=== PATIENT | female | born 1965 | race Caucasian/White ===

== ENCOUNTER 2017-08-10 12:20 | Emergency (ER) | payer BC ==
--- NOTE | 2017-08-10 13:22 | ERPHSYRPT ---
- History of Present Illness Time Seen by Provider: 08/10/17 13:02 Historian: patient Exam Limitations: no limitations Patient Subjective Stated Complaint: Abdominal Pain and Flank Pain x2 weeks Triage Nursing Assessment: Pt presents to the ED with complaints of LUQ abdominal pain x2 weeks, worsening x3 days. Pt states burning sensation. Pt states intermittent diarrhea with constipation, denies BM x3 days. No distress noted, skin PWD, Pt A&O x4. Physician History: The patient is a 51-year-old female complaining of worsening abdominal pain for the last 2 weeks. The pain is on the left side. She has not had a bowel movement in the last 3 days. Since the pain began, she's had intermittent watery diarrhea with days of constipation. She has had no normal bowel movement for 2 weeks. At times she will vomit after eating. Her normal bowel habit is to have 1 or 2 bowel movements per week. She states she feels bloated as well. She says for the last day she has not passed any gas or had any bowel movement. She has not vomited for the last 2 days. She saw her primary medical doctor on Tuesday and was given ciprofloxacin without any relief. Her past medical history is significant for right oophorectomy, hysterectomy, cholecystectomy, and she thinks possibly an appendectomy when she had her ovary removed. Timing/Duration: week(s) (2), gradual onset, worse Activities at Onset: none Quality: aching, fullness Abdominal Pain Onset Location: LUQ, LLQ Pain Radiation: no radiation Severity of Pain-Max: moderate Severity of Pain-Current: moderate Modifying Factors: Improves With: nothing Associated Symptoms: diarrhea, nausea, vomiting Previous symptoms: no prior history Allergies/Adverse Reactions: latex Allergy (Mild, Verified 08/10/17 12:38) Rash Home Medications: Ciprofloxacin [Cipro 500 MG] 500 mg PO BID 08/10/17 [History] Hx Tetanus, Diphtheria Vaccination/Date Given: No Hx Influenza Vaccination/Date Given: No Hx Pneumococcal Vaccination/Date Given: No Immunizations Up to Date: No - Review of Systems Constitutional: No Fever, No Chills Eyes: No Symptoms Ears, Nose, & Throat: No Symptoms Respiratory: No Cough, No Dyspnea Cardiac: No Chest Pain, No Edema, No Syncope Abdominal/Gastrointestinal: Nausea, Vomiting, Diarrhea, Constipation Genitourinary Symptoms: No Dysuria Musculoskeletal: No Back Pain, No Neck Pain Skin: No Rash Neurological: No Dizziness, No Focal Weakness, No Sensory Changes Psychological: No Symptoms Endocrine: No Symptoms Hematologic/Lymphatic: No Symptoms Immunological/Allergic: No Symptoms All Other Systems: Reviewed and Negative - Past Medical History Pertinent Past Medical History: Yes Neurological History: No Pertinent History ENT History: No Pertinent History Cardiac History: No Pertinent History Respiratory History: No Pertinent History Endocrine Medical History: No Pertinent History Musculoskeletal History: No Pertinent History GI Medical History: No Pertinent History History: No Pertinent History Psycho-Social History: No Pertinent History Female Reproductive Disorders: Uterine Cancer - Past Surgical History Past Surgical History: Yes Neuro Surgical History: No Pertinent History Cardiac: No Pertinent History Respiratory: No Pertinent History Gastrointestinal: Cholecystectomy Genitourinary: No Pertinent History Female Surgical History: Hysterectomy, Section - Social History Smoking Status: Current every day smoker How long have you smoked: 15 years Exposure to second hand smoke: Yes Drug Use: none Patient Lives Alone: Yes - Female History Hx Now: No - Nursing Vital Signs Nursing Vital Signs: Initial Vital Signs Temperature 98.5 F 08/10/17 12:24 Pulse Rate 72 08/10/17 12:24 Respiratory Rate 16 08/10/17 12:24 Blood Pressure 147/93 08/10/17 12:24 O2 Sat by Pulse Oximetry 98 08/10/17 12:24 Pain Scale Pain Intensity 2 - Physical Exam General Appearance: no apparent distress, alert Eye Exam: PERRL/EOMI, eyes nml inspection Ears, Nose, Throat Exam: normal ENT inspection, pharynx normal, moist mucous membranes Neck Exam: normal inspection, non-tender, supple, full range of motion Respiratory Exam: normal breath sounds, lungs clear, No respiratory distress Cardiovascular Exam: regular rate/rhythm, normal heart sounds Gastrointestinal/Abdomen Exam: soft, tenderness (left abdomen), other ( hyperactive BS), No mass, No guarding Pelvic Exam: not done Rectal Exam: not done Back Exam: normal inspection, normal range of motion, No CVA tenderness, No vertebral tenderness Extremity Exam: normal inspection, normal range of motion, pelvis stable Neurologic Exam: alert, oriented x 3, cooperative, normal mood/affect, nml cerebellar function, sensation nml, No motor deficits Skin Exam: normal color, warm, dry SpO2 Interpretation: normal SpO2: 100 Oxygen Delivery: Room Air - CT Exams Abdomen/Pelvis CT Interpretation: Tele-radiologist Report, Normal Appendix, No appendicitis, Other (no ureteral stones; nomal appendix; nonspecific prominence of 3 small bowel loops/possible enteritis; no diverticular disesase Per Dr Lopez.) Ordered Tests: Active Orders 24 hr Category Date Time Status Clean Catch Urine Specimen STAT Care 08/10/17 13:29 Active IV Insertion STAT Care 08/10/17 13:29 Active ABDOMEN AND PELVIS W/0 CONTRAS [CT] Stat Exams 08/10/17 13:30 Completed AMYLASE Stat Lab 08/10/17 14:08 Completed CBC W DIFF Stat Lab 08/10/17 14:08 Completed CMP Stat Lab 08/10/17 14:08 Completed LIPASE Stat Lab 08/10/17 14:08 Completed Lactic Acid Stat Lab 08/10/17 13:55 Completed UA W/RFX UR CULTURE Stat Lab 08/10/17 13:39 Completed Medication Summary Discontinued Medications Generic Name Dose Route Start Last Admin Trade Name Freq PRN Reason Stop Dose Admin Sodium Chloride 1,000 mls @ 999 mls/hr 08/10/17 13:29 08/10/17 13:52 Sodium Chloride 0.9% 1000 Ml IV 08/10/17 14:29 999 mls/hr .Q1H1M STA Administration Sodium Chloride Confirm 08/10/17 13:50 Sodium Chloride 0.9% 1000 Ml Administered 08/10/17 13:51 Dose 1,000 mls @ ud .ROUTE .STK-MED ONE Ketorolac Tromethamine 30 mg 08/10/17 13:29 08/10/17 13:53 Toradol 30 Mg Injection IV 08/10/17 13:30 30 mg STAT ONE Administration Ketorolac Tromethamine Confirm 08/10/17 13:50 Toradol 30 Mg Injection Administered 08/10/17 13:51 Dose 30 mg .ROUTE .STK-MED ONE Ondansetron HCl 4 mg 08/10/17 13:29 08/10/17 13:53 Zofran 4 Mg/2 Ml Vial IV 08/10/17 13:30 4 mg STAT ONE Administration Ondansetron HCl Confirm 08/10/17 13:50 Zofran 4 Mg/2 Ml Vial Administered 08/10/17 13:51 Dose 4 mg .ROUTE .STK-MED ONE Lab/Rad Data: Laboratory Result Diagrams 08/10/17 14:08 08/10/17 14:08 Laboratory Results 08/10/17 08/10/17 08/10/17 Range/Units 14:08 14:08 13:55 WBC 7.8 (4.0-10.5) K/mm3 RBC 4.82 (4.1-5.4) M/mm3 Hgb 14.4 (12.0-16.0) gm/dl Hct 43.2 (35-47) % MCV 89.6 (78-100) fl MCH 29.9 (26-32) pg MCHC 33.3 (32-36) g/dl RDW 14.0 (11.5-14.0) % Plt Count 326 (150-450) K/mm3 MPV 10.3 H (6-9.5) fl Gran % 53.4 (36.0-66.0) % Eos # (Auto) 1.20 H (0-0.5) Absolute Lymphs (auto) 1.92 (1.0-4.6) Absolute Monos (auto) 0.48 (0.0-1.3) Lymphocytes % 24.7 (24.0-44.0) % Monocytes % 6.2 (0.0-12.0) % Eosinophils % 15.4 H (0.00-5.0) % Basophils % 0.3 (0.0-0.4) % Absolute Granulocytes 4.15 (1.4-6.9) Basophils # 0.02 (0-0.4) Sodium 142 (137-145) mmol/L Potassium 3.6 (3.5-5.1) mmol/L Chloride 107 (98-107) mmol/L Carbon Dioxide 26 (22-30) mmol/L Anion Gap 13.3 (5-15) MEQ/L BUN 8 (7-17) mg/dL Creatinine 0.91 (0.52-1.04) mg/dL Estimated GFR > 60.0 ML/MIN Glucose 98 (74-106) mg/dL Lactic Acid 1.0 (0.4-2.0) Calcium 10.1 (8.4-10.2) mg/dL Total Bilirubin 0.30 (0.2-1.3) mg/dL AST 23 (14-36) U/L ALT 18 (0-35) U/L Alkaline Phosphatase 114 (38-126) U/L Serum Total Protein 8.3 H (6.3-8.2) g/dL Albumin 4.7 (3.5-5.0) g/dL Amylase 37 (30-110) U/L Lipase 49 (23-300) U/L Ur Collection Type Urine Color (YELLOW) Urine Appearance (CLEAR) Urine pH (5-6) Ur Specific [place] (1.005-1.025) Urine Protein (Negative) Urine Ketones (NEGATIVE) Urine Blood (0-5) [place]/ul Urine Nitrite (NEGATIVE) Urine Bilirubin (NEGATIVE) Urine Urobilinogen (0-1) mg/dL Ur Leukocyte Esterase (NEGATIVE) Urine Culture Reflexed (NO) Urine Glucose (NEGATIVE) mg/dL Specimen Received 08/10/17 Range/Units 13:39 WBC (4.0-10.5) K/mm3 RBC (4.1-5.4) M/mm3 Hgb (12.0-16.0) gm/dl Hct (35-47) % MCV (78-100) fl MCH (26-32) pg MCHC (32-36) g/dl RDW (11.5-14.0) % Plt Count (150-450) K/mm3 MPV (6-9.5) fl Gran % (36.0-66.0) % Eos # (Auto) (0-0.5) Absolute Lymphs (auto) (1.0-4.6) Absolute Monos (auto) (0.0-1.3) Lymphocytes % (24.0-44.0) % Monocytes % (0.0-12.0) % Eosinophils % (0.00-5.0) % Basophils % (0.0-0.4) % Absolute Granulocytes (1.4-6.9) Basophils # (0-0.4) Sodium (137-145) mmol/L Potassium (3.5-5.1) mmol/L Chloride (98-107) mmol/L Carbon Dioxide (22-30) mmol/L Anion Gap (5-15) MEQ/L BUN (7-17) mg/dL Creatinine (0.52-1.04) mg/dL Estimated GFR ML/MIN Glucose (74-106) mg/dL Lactic Acid (0.4-2.0) Calcium (8.4-10.2) mg/dL Total Bilirubin (0.2-1.3) mg/dL AST (14-36) U/L ALT (0-35) U/L Alkaline Phosphatase (38-126) U/L Serum Total Protein (6.3-8.2) g/dL Albumin (3.5-5.0) g/dL Amylase (30-110) U/L Lipase (23-300) U/L Ur Collection Type CLEAN CATCH Urine Color YELLOW (YELLOW) Urine Appearance CLEAR (CLEAR) Urine pH 5.0 (5-6) Ur Specific [place] 1.010 (1.005-1.025) Urine Protein NEGATIVE (Negative) Urine Ketones NEGATIVE (NEGATIVE) Urine Blood NEGATIVE (0-5) [place]/ul Urine Nitrite NEGATIVE (NEGATIVE) Urine Bilirubin NEGATIVE (NEGATIVE) Urine Urobilinogen NORMAL (0-1) mg/dL Ur Leukocyte Esterase NEGATIVE (NEGATIVE) Urine Culture Reflexed NO (NO) Urine Glucose NEGATIVE (NEGATIVE) mg/dL Specimen Received 08/10/17 1340 - Progress Progress: improved Progress Note: 08/10/17 15:20 After toradol 30 mg and zofran 4 mg IV, pt is pain-free. Counseled pt/family regarding: lab results, diagnosis, need for follow-up, rad results - Departure Time of Disposition: 15:20 Departure Disposition: Home Clinical Impression: Enteritis Condition: Stable Critical Care Time: No Referrals: CHATA TORRES MD [Primary Care Provider] - Additional Instructions: You have a minor infection in your small intestine. This is called enteritis. Continue taking the ciprofloxacin as was previously prescribed. You were given Toradol 30 mg and Zofran 4 mg by IV in the ER. You may continue to take Tylenol 1000 mg every 6-8 hours as needed. Follow-up with Dr. Torres on Tuesday as previously scheduled.
[2017-08-10] MEDS ORDERED: Sodium Chloride 0.9% 1000 ML 1,000 ML IV STA (13:29)
[2017-08-10] MEDS ORDERED: Zofran 4 MG/2 ML VIAL IV ONE (13:29)
[2017-08-10] MEDS ORDERED: TORAdol 30 mg Injection IV ONE (13:29)
[2017-08-10 13:50] LABS: Appearance CLEAR (CLEAR); Bilirubin NEGATIVE (NEGATIVE); Blood NEGATIVE Ery/ul (0-5); Glucose NEGATIVE (NEGATIVE); Ketones NEGATIVE (NEGATIVE); Leukocyte Esterase NEGATIVE (NEGATIVE); Nitrite NEGATIVE (NEGATIVE); Protein,Urine Dip NEGATIVE (Negative); Urobilinogen NORMAL mg/dL (0-1)
[2017-08-10] MEDS ORDERED: TORAdol 30 mg Injection ONE (13:50)
[2017-08-10] MEDS ORDERED: Sodium Chloride 0.9% 1000 ML 1,000 ML ONE (13:50)
[2017-08-10] MEDS ORDERED: Zofran 4 MG/2 ML VIAL ONE (13:50)
[2017-08-10 14:10] LABS: BASOPHIL % 0.3 % (0.0-0.4); Basophil (Absolute #) 0.02 (0-0.4); Eosinophil % 15.4 % (0.00-5.0); Granulocyte Absolute (ANC) 4.15 (1.4-6.9); Granulocytes % 53.4 % (36.0-66.0); Hematocrit 43.2 % (35-47); Hemoglobin 14.4 gm/dl (12.0-16.0); Lymphocyte (Absolute #) 1.92 (1.0-4.6); Lymphocytes % 24.7 % (24.0-44.0); Mean Cell Volume 89.6 fl (78-100); Mean Corpuscular Hemoglobin 29.9 pg (26-32); Mean Corpuscular Hgb Concent. 33.3 g/dl (32-36); Mean Platelet Volume 10.3 fl (6-9.5); Monocyte (Absolute #) 0.48 (0.0-1.3); Monocytes % 6.2 % (0.0-12.0); Platelet Count 326 K/mm3 (150-450); Red Blood Count 4.82 M/mm3 (4.1-5.4); White Blood Count 7.8 K/mm3 (4.0-10.5)
[2017-08-10 14:40] LABS: ALBUMIN 4.7 g/dL (3.5-5.0); ALKALINE PHOSPHATASE 114 U/L (38-126); AMYLASE 37 U/L (30-110); ANION GAP 13.3 MEQ/L (5-15); BLOOD UREA NITROGEN 8 mg/dL (7-17); CHLORIDE 107 mmol/L (98-107); Calcium 10.1 mg/dL (8.4-10.2); Carbon Dioxide 26 mmol/L (22-30); Creatinine 1 0.91 mg/dL (0.52-1.04); Glucose 98 mg/dL (74-106); LIPASE 49 U/L (23-300); Potassium 3.6 mmol/L (3.5-5.1); SGOT/AST 23 U/L (14-36); SGPT/ALT 18 U/L (0-35); SODIUM 142 mmol/L (137-145); Total Protein 8.3 g/dL (6.3-8.2)
--- NOTE | 2017-08-10 14:47 | XRAY ---
Exam: CT of the abdomen and pelvis without IV contrast from 08/10/2017. CTDI: 20.80 Comparison: None. Indication: 51-year-old female with left-sided abdominal pain for 2 weeks, particularly within the left upper quadrant. History: The patient gives a history of prior cholecystectomy and hysterectomy and prior right oophorectomy. She believes that she still has her left ovary. She is unsure whether her appendix has been removed in the past. Technique: Non-IV contrast axial images were obtained through the abdomen and pelvis. No oral contrast was given. Reconstructed coronal and sagittal images were created and reviewed. Findings: The lung bases reveals some minimal linear scarring or subsegmental atelectasis at the posterior right lung base. Subtle compression atelectatic changes are seen adjacent to both posterior pleural surfaces. No other abnormality of the lung bases is seen. There is a suggestion of a minimal hiatal hernia on axial image #11. The liver appears normal. Surgical clips consistent with prior cholecystectomy are seen. No intrahepatic biliary duct distention is seen. The spleen is of normal size and reveals a small calcified granuloma. No focal mass is seen. There is a minimal splenule at the anterior lateral margin of the spleen on axial image #19. The pancreas appears unremarkable. There is some prominence of the distal common bile duct adjacent to the posterior lateral margin of the pancreatic head. The common bile duct measures up to 11 mm in diameter. This is probably due to the patient's prior cholecystectomy. Again, no intrahepatic biliary duct distention is seen. The adrenal glands appear unremarkable. The right kidney reveals a couple tiny nonobstructing stones, one within the upper pole and the other within the lower pole. The left kidney reveals 5 or 6 tiny stones which are nonobstructing and probably calyceal in location. I see no evidence of hydronephrosis of either kidney. Both ureters are of normal diameter and reveal no ureterolith. The urinary bladder is distended with urine and reveals no bladder stone or bladder wall thickening. No abdominal aortic aneurysm is seen. Minimal atherosclerotic vascular calcification is seen within the of the upper and distal abdominal aorta. No abnormal retroperitoneal or mesenteric lymphadenopathy is seen. Minimal protrusion of intraperitoneal fat is seen anteriorly on sagittal image #81 at the level of the umbilicus. A bowel containing ventral hernia is not seen. There is no free intraperitoneal air seen. Within the right lower quadrant, the appendix is identified and appears unremarkable. No focal inflammatory changes are seen within the right lower quadrant.. There is mild prominence of some small bowel loops just to the left of midline within the mid abdomen, best seen on the CT sailing instructor image. This is nonspecific and may relate to a mild focal ileus. Consider enteritis. Otherwise, the colon appears of normal diameter and reveals a small amount of scattered stool. No significant diverticula are seen within the colon. The uterus is surgically absent. The right ovary is not seen. The left ovary may be seen on axial images #65 and #66 within the left hemipelvis. The pelvic sidewalls appear unremarkable. No free fluid is seen. Some scattered nonspecific lymph nodes are seen within both inguinal regions. The skeleton reveals no acute fracture or aggressive bone lesion. Some mild vacuum disc phenomena is seen within the L4-L5 and L5-S1 interspace levels suggesting mild degenerative disc disease. Small vertebral endplate spurs are noted within the lower 3 lumbar interspace levels. There is also mild vertebral endplate spurring within the lower thoracic spine. Impression: 1. There are multiple small micro-calculi within the kidneys in a calyceal location, more numerous on the left than right. However, I do not see any evidence of acute obstructive uropathy (i.e. no hydronephrosis or ureteral dilation). Also, no urinary bladder stone is seen. 2. The appendix appears unremarkable. 3. I note mild nonspecific prominence of at least 3 small bowel loops just to the left of midline within the mid abdomen. This is nonspecific and could be due to a focal ileus or enteritis. No convincing findings of bowel obstruction are seen. 4. Status post cholecystectomy, hysterectomy, an apparent right oophorectomy. 5. Minimal hiatal hernia. 6. Mild degenerative disc disease at L4-L5 and L5-S1.
[2017-08-10 15:00] VITALS: BP 140/80; PULSE 88
[2017-08-10 15:20] VITALS: O2SAT 100
== END 2017-08-10 15:28 | disposition home or self-care (01) ==
LOC: ED 12:20
DX: Z72.0 Tobacco use (principal); Z85.42 Personal history of malignant neoplasm of other parts of uterus
CPT/HCPCS: 36000; 36415; 74176; 80053; 81002; 82150; 83605; 83690; 85025; 96374; 96375; 99284; J1885; J2405

== ENCOUNTER 2017-08-26 15:27 | Emergency (ER) | payer BC ==
--- NOTE | 2017-08-26 16:15 | ERPHSYRPT ---
- History of Present Illness Time Seen by Provider: 08/26/17 16:09 Historian: patient Exam Limitations: no limitations Patient Subjective Stated Complaint: pt reports abd pain n/v/d beginning pushpa 1 month ago-states she was treated 3 weeks ago and finished round of cipro on august 17-states n/v/d has not gotten better-states if she eats or drinks anything then she will vomit and have diarrhea-denies donato blood Triage Nursing Assessment: pt pink warm and [id number] soft and nontender to palp-pt ambulatory with no difficulty-resp easy and nonlabored Physician History: He the patient is a 51-year-old female who I saw in this ER on 08/10/17 for essentially the same complaint. On 08/10/17 she had complained of abdominal pain for 2 weeks. The pain was on her left side. She had intermittent pain with intermittent watery diarrhea. Her CT scan of 08/10/17 showed mild enteritis. She had been on ciprofloxacin 500 mg 2 times a day before being seen and continued the ciprofloxacin for another period of time totaling 2 weeks. She has seen her primary care doctor since the last ER visit. She still has intermittent abdominal pain with more pain on the left side. Now in addition to the explosive watery diarrhea she has vomiting. She will eat a little bit and after an hour or so, she will vomit and have diarrhea. She also complains of sweats and chills. She called her primary care doctor and was told to be seen once again in the ER. Her past medical history is significant for a right oophorectomy, hysterectomy, and cholecystectomy. She takes no medicines at this time and is allergic to no medicines. Timing/Duration: week(s) (4), intermittent, gradual onset, worse Activities at Onset: none Quality: aching Abdominal Pain Onset Location: LLQ Pain Radiation: no radiation Severity of Pain-Max: severe Severity of Pain-Current: mild Modifying Factors: Improves With: defecating, eating, vomiting Associated Symptoms: denies symptoms Previous symptoms: same symptoms as today, recently seen, recently treated Allergies/Adverse Reactions: latex Allergy (Mild, Verified 08/26/17 15:46) Rash Hx Tetanus, Diphtheria Vaccination/Date Given: No Hx Influenza Vaccination/Date Given: No Hx Pneumococcal Vaccination/Date Given: No Immunizations Up to Date: Yes - Review of Systems Constitutional: Fever, Chills Eyes: No Symptoms Ears, Nose, & Throat: No Symptoms Respiratory: No Cough, No Dyspnea Cardiac: No Chest Pain, No Edema, No Syncope Abdominal/Gastrointestinal: Abdominal Pain, Nausea, Vomiting, Diarrhea Genitourinary Symptoms: No Dysuria Musculoskeletal: No Back Pain, No Neck Pain Skin: No Rash Neurological: No Dizziness, No Focal Weakness, No Sensory Changes Psychological: No Symptoms Endocrine: No Symptoms Hematologic/Lymphatic: No Symptoms Immunological/Allergic: No Symptoms All Other Systems: Reviewed and Negative - Past Medical History Pertinent Past Medical History: Yes Neurological History: No Pertinent History ENT History: No Pertinent History Cardiac History: No Pertinent History Respiratory History: No Pertinent History Endocrine Medical History: No Pertinent History Musculoskeletal History: No Pertinent History GI Medical History: No Pertinent History History: No Pertinent History Psycho-Social History: No Pertinent History Female Reproductive Disorders: Uterine Cancer - Past Surgical History Past Surgical History: Yes Neuro Surgical History: No Pertinent History Cardiac: No Pertinent History Respiratory: No Pertinent History Gastrointestinal: Cholecystectomy Genitourinary: No Pertinent History Female Surgical History: Hysterectomy, Section - Social History Smoking Status: Current every day smoker How long have you smoked: 15 years Exposure to second hand smoke: Yes Drug Use: none Patient Lives Alone: Yes - Female History Hx Now: No - Nursing Vital Signs Nursing Vital Signs: Initial Vital Signs Temperature 98.5 F 08/26/17 15:42 Pulse Rate 107 H 08/26/17 15:42 Respiratory Rate 18 08/26/17 15:42 Blood Pressure 121/91 08/26/17 15:42 O2 Sat by Pulse Oximetry 97 08/26/17 15:42 Pain Scale Pain Intensity 4 - Physical Exam General Appearance: mild distress Eye Exam: PERRL/EOMI, eyes nml inspection Ears, Nose, Throat Exam: normal ENT inspection, pharynx normal, moist mucous membranes Neck Exam: normal inspection, non-tender, supple, full range of motion Respiratory Exam: normal breath sounds, lungs clear, No respiratory distress Cardiovascular Exam: regular rate/rhythm, normal heart sounds Gastrointestinal/Abdomen Exam: tenderness (LLQ) Pelvic Exam: not done Rectal Exam: not done Back Exam: normal inspection, normal range of motion, No CVA tenderness, No vertebral tenderness Extremity Exam: normal inspection, normal range of motion, pelvis stable Neurologic Exam: alert, oriented x 3, cooperative, normal mood/affect, nml cerebellar function, sensation nml, No motor deficits Skin Exam: normal color, warm, dry SpO2 Interpretation: normal SpO2: 97 Oxygen Delivery: Room Air - CT Exams Abdomen/Pelvis CT Interpretation: Tele-radiologist Report (per Dr Post), Normal Appendix, Other (no new ors acute intsra-abdominal/pelvic abnormalities.) Ordered Tests: Active Orders 24 hr Category Date Time Status IV Insertion STAT Care 08/26/17 16:16 Active ABDOMEN AND PELVIS W/0 CONTRAS [CT] Stat Exams 08/26/17 16:17 Completed BLOOD CULTURE Stat Lab 08/26/17 16:17 Ordered CBC W DIFF Stat Lab 08/26/17 16:16 Completed CMP Stat Lab 08/26/17 16:16 Completed LIPASE Stat Lab 08/26/17 16:16 Completed Lactic Acid Stat Lab 08/26/17 16:33 Completed Occult Blood,Stool Other Stat Lab 08/26/17 16:23 Ordered UA W/RFX UR CULTURE Stat Lab 08/26/17 16:23 Completed Medication Summary Discontinued Medications Generic Name Dose Route Start Last Admin Trade Name Freq PRN Reason Stop Dose Admin Famotidine 20 mg 08/26/17 16:16 08/26/17 16:39 Pepcid 20 Mg Vial IV 08/26/17 16:17 20 mg STAT ONE Administration Famotidine Confirm 08/26/17 16:25 Pepcid 20 Mg Vial Administered 08/26/17 16:26 Dose 20 mg IV .STK-MED ONE Sodium Chloride 1,000 mls @ 999 mls/hr 08/26/17 16:16 08/26/17 16:39 Sodium Chloride 0.9% 1000 Ml IV 08/26/17 17:16 999 mls/hr .Q1H1M STA Administration Sodium Chloride Confirm 08/26/17 16:26 Sodium Chloride 0.9% 1000 Ml Administered 08/26/17 16:27 Dose 1,000 mls @ ud .ROUTE .STK-MED ONE Morphine Sulfate 4 mg 08/26/17 16:16 08/26/17 16:38 Morphine Sulfate 4 Mg Inj IV 08/26/17 16:17 Not Given STAT ONE Morphine Sulfate Confirm 08/26/17 16:26 Morphine Sulfate 4 Mg Inj Administered 08/26/17 16:27 Dose 4 mg .ROUTE .STK-MED ONE Ondansetron HCl 4 mg 08/26/17 16:16 08/26/17 16:39 Zofran 4 Mg/2 Ml Vial IV 08/26/17 16:17 4 mg STAT ONE Administration Ondansetron HCl Confirm 08/26/17 16:25 Zofran 4 Mg/2 Ml Vial Administered 08/26/17 16:26 Dose 4 mg .ROUTE .K-[facility] ONE Lab/Rad Data: Laboratory Result Diagrams 08/26/17 16:16 08/26/17 16:16 Laboratory Results 08/26/17 08/26/17 08/26/17 Range/Units 16:33 16:23 16:16 WBC (4.0-10.5) K/mm3 RBC (4.1-5.4) M/mm3 Hgb (12.0-16.0) gm/dl Hct (35-47) % MCV (78-100) fl MCH (26-32) pg MCHC (32-36) g/dl RDW (11.5-14.0) % Plt Count (150-450) K/mm3 MPV (6-9.5) fl Gran % (36.0-66.0) % Eos # (Auto) (0-0.5) Absolute Lymphs (auto) (1.0-4.6) Absolute Monos (auto) (0.0-1.3) Lymphocytes % (24.0-44.0) % Monocytes % (0.0-12.0) % Eosinophils % (0.00-5.0) % Basophils % (0.0-0.4) % Absolute Granulocytes (1.4-6.9) Basophils # (0-0.4) Sodium 142 (137-145) mmol/L Potassium 3.5 (3.5-5.1) mmol/L Chloride 103 (98-107) mmol/L Carbon Dioxide 27 (22-30) mmol/L Anion Gap 14.1 (5-15) MEQ/L BUN 9 (7-17) mg/dL Creatinine 0.81 (0.52-1.04) mg/dL Estimated GFR > 60.0 ML/MIN Glucose 87 (74-106) mg/dL Lactic Acid 0.8 (0.4-2.0) Calcium 9.8 (8.4-10.2) mg/dL Total Bilirubin 0.50 (0.2-1.3) mg/dL AST 19 (14-36) U/L ALT 15 (0-35) U/L Alkaline Phosphatase 92 (38-126) U/L Serum Total Protein 7.5 (6.3-8.2) g/dL Albumin 4.5 (3.5-5.0) g/dL Lipase 18 L (23-300) U/L Ur Collection Type CLEAN CATCH Urine Color LT.YELLOW (YELLOW) Urine Appearance CLEAR (CLEAR) Urine pH 5.0 (5-6) Ur Specific [place] 1.010 (1.005-1.025) Urine Protein NEGATIVE (Negative) Urine Ketones NEGATIVE (NEGATIVE) Urine Blood NEGATIVE (0-5) [place]/ul Urine Nitrite NEGATIVE (NEGATIVE) Urine Bilirubin NEGATIVE (NEGATIVE) Urine Urobilinogen NORMAL (0-1) mg/dL Ur Leukocyte Esterase NEGATIVE (NEGATIVE) Urine Culture Reflexed NO (NO) Urine Glucose NEGATIVE (NEGATIVE) mg/dL Specimen Received 08/26/17 1700 08/26/17 Range/Units 16:16 WBC 7.5 (4.0-10.5) K/mm3 RBC 4.59 (4.1-5.4) M/mm3 Hgb 13.8 (12.0-16.0) gm/dl Hct 41.4 (35-47) % MCV 90.2 (78-100) fl MCH 30.1 (26-32) pg MCHC 33.3 (32-36) g/dl RDW 14.2 H (11.5-14.0) % Plt Count 331 (150-450) K/mm3 MPV 10.2 H (6-9.5) fl Gran % 51.6 (36.0-66.0) % Eos # (Auto) 1.18 H (0-0.5) Absolute Lymphs (auto) 1.88 (1.0-4.6) Absolute Monos (auto) 0.56 (0.0-1.3) Lymphocytes % 25.1 (24.0-44.0) % Monocytes % 7.5 (0.0-12.0) % Eosinophils % 15.7 H (0.00-5.0) % Basophils % 0.1 (0.0-0.4) % Absolute Granulocytes 3.87 (1.4-6.9) Basophils # 0.01 (0-0.4) Sodium (137-145) mmol/L Potassium (3.5-5.1) mmol/L Chloride (98-107) mmol/L Carbon Dioxide (22-30) mmol/L Anion Gap (5-15) MEQ/L BUN (7-17) mg/dL Creatinine (0.52-1.04) mg/dL Estimated GFR ML/MIN Glucose (74-106) mg/dL Lactic Acid (0.4-2.0) Calcium (8.4-10.2) mg/dL Total Bilirubin (0.2-1.3) mg/dL AST (14-36) U/L ALT (0-35) U/L Alkaline Phosphatase (38-126) U/L Serum Total Protein (6.3-8.2) g/dL Albumin (3.5-5.0) g/dL Lipase (23-300) U/L Ur Collection Type Urine Color (YELLOW) Urine Appearance (CLEAR) Urine pH (5-6) Ur Specific [place] (1.005-1.025) Urine Protein (Negative) Urine Ketones (NEGATIVE) Urine Blood (0-5) [place]/ul Urine Nitrite (NEGATIVE) Urine Bilirubin (NEGATIVE) Urine Urobilinogen (0-1) mg/dL Ur Leukocyte Esterase (NEGATIVE) Urine Culture Reflexed (NO) Urine Glucose (NEGATIVE) mg/dL Specimen Received - Progress Progress: improved Progress Note: 08/26/17 16:45 Pt offered MSO4 but declines because she is driving. Discussed with : Stephani Counseled pt/family regarding: lab results, diagnosis, need for follow-up, rad results - Departure Time of Disposition: 17:34 Departure Disposition: Home Clinical Impression: Gastroenteritis Condition: Stable Critical Care Time: No Referrals: CHATA TORRES MD [Primary Care Provider] - Additional Instructions: You have gastroenteritis. I talked with Dr. Torres and he was see you on Tuesday. Give him a call on Tuesday to schedule the appointment. Take Zofran 4 mg ODT every 6 hours as needed for nausea and vomiting. Take Phenergan 25 mg every 8 hours for nausea and vomiting if needed. Take Tylenol and codeine 1 tablet every 4-6 hours as needed for pain. Prescriptions: Ondansetron [Zofran Odt] 4 mg PO Q6H PRN PRN #10 tab.rapdis PRN Reason: Vomiting Promethazine HCl 25 mg [Phenergan 25 mg] 25 mg PO Q8H PRN PRN #10 tablet PRN Reason: Nausea/Vomiting Codeine Phosphate/APAP #3 [Tylenol #3 Tablet] 1 tab PO Q4-6HPRN PRN #10 tablet PRN Reason: Pain
[2017-08-26] MEDS ORDERED: Zofran 4 MG/2 ML VIAL IV ONE (16:16)
[2017-08-26] MEDS ORDERED: MORPHINE SULFATE 4 MG INJ IV ONE (16:16)
[2017-08-26] MEDS ORDERED: Pepcid 20 MG VIAL IV ONE ×2 (16:16→16:25)
[2017-08-26] MEDS ORDERED: Sodium Chloride 0.9% 1000 ML 1,000 ML IV STA (16:16)
[2017-08-26] MEDS ORDERED: Zofran 4 MG/2 ML VIAL ONE (16:25)
[2017-08-26] MEDS ORDERED: MORPHINE SULFATE 4 MG INJ ONE (16:26)
[2017-08-26] MEDS ORDERED: Sodium Chloride 0.9% 1000 ML 1,000 ML ONE (16:26)
[2017-08-26 17:00] LABS: BASOPHIL % 0.1 % (0.0-0.4); Basophil (Absolute #) 0.01 (0-0.4); Eosinophil % 15.7 % (0.00-5.0); Eosinophil (Absolute #) 1.18 (0-0.5); Granulocyte Absolute (ANC) 3.87 (1.4-6.9); Granulocytes % 51.6 % (36.0-66.0); Hematocrit 41.4 % (35-47); Hemoglobin 13.8 gm/dl (12.0-16.0); Lymphocyte (Absolute #) 1.88 (1.0-4.6); Lymphocytes % 25.1 % (24.0-44.0); Mean Cell Volume 90.2 fl (78-100); Mean Corpuscular Hemoglobin 30.1 pg (26-32); Mean Corpuscular Hgb Concent. 33.3 g/dl (32-36); Mean Platelet Volume 10.2 fl (6-9.5); Monocyte (Absolute #) 0.56 (0.0-1.3); Monocytes % 7.5 % (0.0-12.0); Platelet Count 331 K/mm3 (150-450); Red Blood Count 4.59 M/mm3 (4.1-5.4); Red Cell Distribution Width 14.2 % (11.5-14.0); White Blood Count 7.5 K/mm3 (4.0-10.5)
--- NOTE | 2017-08-26 17:09 | XRAY ---
Indication: Left lower abdominal pain and constipation. Multiple contiguous axial images obtained through the abdomen and pelvis without contrast as ordered. Comparison: August 10, 2017. Lung bases clear with stable left lower lobe bleb. Heart is not enlarged. Stable small hiatal hernia. Noncontrasted stomach and bowel loops appear nonobstructed. Normal appendix. No fecal stasis. Stable minimal sigmoid diverticulosis without diverticulitis. Again cholecystectomy and hysterectomy. No free fluid/air. Stable nonobstructing bilateral renal micro-calculi. Remaining liver, pancreas, spleen, adrenal glands, kidneys, ureters, and bladder appear unremarkable for noncontrast exam. Stable minimal aortoiliac calcifications. Impression: 1. Stable small hiatal hernia, sigmoid diverticulosis, and nonobstructing renal micro-calculi. 2. No new or acute intra-abdominal/pelvic abnormalities on this noncontrast exam. CTDI 21.42
[2017-08-26 17:13] LABS: Appearance CLEAR (CLEAR); Bilirubin NEGATIVE (NEGATIVE); Blood NEGATIVE Ery/ul (0-5); Glucose NEGATIVE (NEGATIVE); Ketones NEGATIVE (NEGATIVE); Leukocyte Esterase NEGATIVE (NEGATIVE); Nitrite NEGATIVE (NEGATIVE); Protein,Urine Dip NEGATIVE (Negative); Urobilinogen NORMAL mg/dL (0-1)
[2017-08-26 17:15] LABS: ALBUMIN 4.5 g/dL (3.5-5.0); ALKALINE PHOSPHATASE 92 U/L (38-126); ANION GAP 14.1 MEQ/L (5-15); BLOOD UREA NITROGEN 9 mg/dL (7-17); CHLORIDE 103 mmol/L (98-107); Calcium 9.8 mg/dL (8.4-10.2); Carbon Dioxide 27 mmol/L (22-30); Creatinine 1 0.81 mg/dL (0.52-1.04); Glucose 87 mg/dL (74-106); LIPASE 18 U/L (23-300); Potassium 3.5 mmol/L (3.5-5.1); SGOT/AST 19 U/L (14-36); SGPT/ALT 15 U/L (0-35); SODIUM 142 mmol/L (137-145); Total Protein 7.5 g/dL (6.3-8.2)
[2017-08-26 17:51] VITALS: BP 113/76; PULSE 88; O2SAT 99
[2017-08-26 19:02] LABS: 027 TOX PROD PRESUMPTIVE NEGATIVE (NEGATIVE); TOXIGENIC C. DIFF ORG NEGATIVE (NEGATIVE)
[2017-08-29 11:54] LABS: Source: Feces
== END 2017-08-26 17:57 | disposition home or self-care (01) ==
LOC: ED 15:27
DX: K52.9 Noninfective gastroenteritis and colitis, unspecified (principal); R10.32 Left lower quadrant pain; R11.2 Nausea with vomiting, unspecified
CPT/HCPCS: 36000; 36415; 74176; 80053; 81002; 82272; 83605; 83690; 85025; 87040; 87045; 87046; 87177; 87209; 87335; 87493; 96360; 96374; 96375; 99284; J2270; J2405

== ENCOUNTER 2018-06-22 09:49 | Emergency (ER) | payer BC, SELFPAY ==
--- NOTE | 2018-06-22 09:54 | ERPHSYRPT ---
- History of Present Illness Time Seen by Provider: 06/22/18 09:54 Historian: patient Exam Limitations: no limitations Physician History: 52 y/o white female presents with multiple complaints of first back pain followed by radiation bilat arms, then ribs. there was also episode of dizziness. cp, although mild, central substernal, thought she better get evaluated. pt is a smoker of cigarettes. pt has sig family h/o cardiac dz including siblings at young age of heart dz and parents who also had cardz. pt denies soa and denies abd pain. pt has nkda. Timing/Duration: day(s) (3 to 4 ) Activities at Onset: none Quality: pressure (mild) Location: substernal, central, back Severity of Pain-Max: mild Severity of Pain-Current: mild Modifying Factors: Improves With: nothing Associated Symptoms: palpitations, dizziness, No nausea, No vomiting, No abdominal pain, No shortness of breath, No hurts to breathe, No fever Prior Chest Pain/Cardiac Workup: no prior chest pain, no prior cardiac workup Nitro Today/Relief: no nitro taken today Aspirin Treatment Today: no aspirin today Allergies/Adverse Reactions: latex Allergy (Mild, Verified 06/22/18 10:25) Rash Home Medications: Loratadine 10 mg [Claritin 10 mg] 10 mg PO DAILY 06/22/18 [History] Hx Tetanus, Diphtheria Vaccination/Date Given: No Hx Influenza Vaccination/Date Given: No Hx Pneumococcal Vaccination/Date Given: No - Review of Systems Constitutional: No Symptoms Eyes: No Symptoms Ears, Nose, & Throat: No Symptoms Respiratory: No Symptoms Cardiac: Chest Pain, Palpitations Abdominal/Gastrointestinal: No Symptoms Genitourinary Symptoms: No Symptoms Musculoskeletal: No Symptoms Skin: No Symptoms Neurological: Dizziness Psychological: No Symptoms Endocrine: No Symptoms Hematologic/Lymphatic: No Symptoms Immunological/Allergic: No Symptoms All Other Systems: Reviewed and Negative - Past Medical History Pertinent Past Medical History: Yes Neurological History: No Pertinent History ENT History: No Pertinent History Cardiac History: No Pertinent History Respiratory History: No Pertinent History Endocrine Medical History: No Pertinent History Musculoskeletal History: No Pertinent History GI Medical History: No Pertinent History History: No Pertinent History Psycho-Social History: No Pertinent History Female Reproductive Disorders: Uterine Cancer - Past Surgical History Past Surgical History: Yes Neuro Surgical History: No Pertinent History Cardiac: No Pertinent History Respiratory: No Pertinent History Gastrointestinal: Cholecystectomy Genitourinary: No Pertinent History Female Surgical History: Hysterectomy, Section - Social History Smoking Status: Current every day smoker How long have you smoked: 15 years Exposure to second hand smoke: Yes Drug Use: none Patient Lives Alone: Yes - Nursing Vital Signs Nursing Vital Signs: Initial Vital Signs Temperature 98.5 F 06/22/18 09:58 Pulse Rate 81 06/22/18 09:58 Respiratory Rate 25 H 06/22/18 09:58 Blood Pressure 146/96 06/22/18 09:58 O2 Sat by Pulse Oximetry 100 06/22/18 09:58 Pain Scale Pain Intensity 2 - Physical Exam General Appearance: no apparent distress, alert, anxiety Eye Exam: PERRL/EOMI Ears, Nose, Throat Exam: normal ENT inspection Neck Exam: normal inspection, non-tender, supple, full range of motion Respiratory Exam: normal breath sounds, chest tenderness, lungs clear, airway intact, No respiratory distress Cardiovascular Exam: regular rate/rhythm, normal heart sounds, normal peripheral pulses Gastrointestinal/Abdomen Exam: soft, normal bowel sounds, No tenderness Pelvic Exam: not done Rectal Exam: not done Back Exam: normal inspection, normal range of motion, No CVA tenderness Extremity Exam: normal inspection, normal range of motion, pelvis stable Neurologic Exam: alert, oriented x 3, cooperative, smasher hand II-XII nml as tested Skin Exam: normal color, warm, dry Lymphatic Exam: adenopathy SpO2 Interpretation: normal O2 Delivery: Room Air - Course Nursing assessment & vital signs reviewed: Yes EKG Interpreted by Me: RATE (84), Sinus Rhythm, NORMAL AXIS, NORMAL INTERVALS, NORMAL QRS, Other (no comparison ekg) Ordered Tests: Active Orders 24 hr Category Date Time Status Etcher Machine STAT Care 06/22/18 10:01 Active EKG-ER Only STAT Care 06/22/18 10:01 Active IV Insertion STAT Care 06/22/18 10:01 Active CHEST 1 VIEW (PORTABLE) Stat Exams 06/22/18 10:01 Completed CBC W DIFF Stat Lab 06/22/18 10:21 Completed CMP Stat Lab 06/22/18 10:21 Completed D-DIMER QUANTITATION Stat Lab 06/22/18 10:21 Completed NT PRO BNP Stat Lab 06/22/18 10:21 Completed TROPONIN Q3H Lab 06/22/18 10:21 Completed TROPONIN Q3H Lab 06/22/18 13:15 Ordered TROPONIN Q3H Lab 06/22/18 16:15 Ordered TROPONIN Q3H Lab 06/22/18 19:15 Ordered TROPONIN Q3H Lab 06/22/18 22:15 Ordered Medication Summary Discontinued Medications Generic Name Dose Route Start Last Admin Trade Name Bradfordq PRN Reason Stop Dose Admin Aspirin 324 mg 06/22/18 10:01 06/22/18 10:32 Baby Aspirin 81 Mg Chew PO 06/22/18 10:02 324 mg STAT ONE Administration Lab/Rad Data: Laboratory Result Diagrams 06/22/18 10:21 06/22/18 10:21 Laboratory Results 06/22/18 06/22/18 06/22/18 Range/Units 10:21 10:21 10:21 WBC (4.0-10.5) K/mm3 RBC (4.1-5.4) M/mm3 Hgb (12.0-16.0) gm/dl Hct (35-47) % MCV (78-100) fl MCH (26-32) pg MCHC (32-36) g/dl RDW (11.5-14.0) % Plt Count (150-450) K/mm3 MPV (6-9.5) fl Gran % (36.0-66.0) % Eos # (Auto) (0-0.5) Absolute Lymphs (auto) (1.0-4.6) Absolute Monos (auto) (0.0-1.3) Lymphocytes % (24.0-44.0) % Monocytes % (0.0-12.0) % Eosinophils % (0.00-5.0) % Basophils % (0.0-0.4) % Absolute Granulocytes (1.4-6.9) Basophils # (0-0.4) D-Dimer < 215 L (215-500) ng/mL Sodium 140 (137-145) mmol/L Potassium 4.3 (3.5-5.1) mmol/L Chloride 102 (98-107) mmol/L Carbon Dioxide 31 H (22-30) mmol/L Anion Gap 10.9 (5-15) MEQ/L BUN 10 (7-17) mg/dL Creatinine 0.84 (0.52-1.04) mg/dL Estimated GFR > 60.0 ML/MIN Glucose 86 (74-106) mg/dL Calcium 10.6 H (8.4-10.2) mg/dL Total Bilirubin 0.40 (0.2-1.3) mg/dL AST 23 (14-36) U/L ALT 20 (0-35) U/L Alkaline Phosphatase 84 (38-126) U/L Troponin I < 0.012 (0.000-0.034) ng/mL NT-Pro-B Natriuret Pep 30.5 (0-900) pg/mL Serum Total Protein 7.8 (6.3-8.2) g/dL Albumin 4.3 (3.5-5.0) g/dL 06/22/18 Range/Units 10:21 WBC 5.1 (4.0-10.5) K/mm3 RBC 4.46 (4.1-5.4) M/mm3 Hgb 13.6 (12.0-16.0) gm/dl Hct 42.0 (35-47) % MCV 94.2 (78-100) fl MCH 30.5 (26-32) pg MCHC 32.4 (32-36) g/dl RDW 13.3 (11.5-14.0) % Plt Count 309 (150-450) K/mm3 MPV 10.0 H (6-9.5) fl Gran % 56.4 (36.0-66.0) % Eos # (Auto) 0.14 (0-0.5) Absolute Lymphs (auto) 1.58 (1.0-4.6) Absolute Monos (auto) 0.46 (0.0-1.3) Lymphocytes % 30.9 (24.0-44.0) % Monocytes % 9.0 (0.0-12.0) % Eosinophils % 2.7 (0.00-5.0) % Basophils % 1.0 (0.0-0.4) % Absolute Granulocytes 2.89 (1.4-6.9) Basophils # 0.05 (0-0.4) D-Dimer (215-500) ng/mL Sodium (137-145) mmol/L Potassium (3.5-5.1) mmol/L Chloride (98-107) mmol/L Carbon Dioxide (22-30) mmol/L Anion Gap (5-15) MEQ/L BUN (7-17) mg/dL Creatinine (0.52-1.04) mg/dL Estimated GFR ML/MIN Glucose (74-106) mg/dL Calcium (8.4-10.2) mg/dL Total Bilirubin (0.2-1.3) mg/dL AST (14-36) U/L ALT (0-35) U/L Alkaline Phosphatase (38-126) U/L Troponin I (0.000-0.034) ng/mL NT-Pro-B Natriuret Pep (0-900) pg/mL Serum Total Protein (6.3-8.2) g/dL Albumin (3.5-5.0) g/dL - Progress Progress: improved Air Movement: good Progress Note: 06/22/18 10:09 cxr-negative for acute process Blood Culture(s) Obtained: No Antibiotics given: No Counseled pt/family regarding: lab results, diagnosis, need for follow-up, rad results - Departure Departure Disposition: Home Clinical Impression: Chest pain, Back pain Condition: Stable Critical Care Time: No Referrals: CHATA TORRES MD [Primary Care Provider] - Additional Instructions: follow up with primary doctor for further management
[2018-06-22] MEDS ORDERED: BABY ASPIRIN 81 MG CHEW PO ONE (10:01)
[2018-06-22 10:23] LABS: Basophil (Absolute #) 0.05 (0-0.4); Eosinophil % 2.7 % (0.00-5.0); Eosinophil (Absolute #) 0.14 (0-0.5); Granulocyte Absolute (ANC) 2.89 (1.4-6.9); Granulocytes % 56.4 % (36.0-66.0); Hemoglobin 13.6 gm/dl (12.0-16.0); Lymphocyte (Absolute #) 1.58 (1.0-4.6); Lymphocytes % 30.9 % (24.0-44.0); Mean Cell Volume 94.2 fl (78-100); Mean Corpuscular Hemoglobin 30.5 pg (26-32); Mean Corpuscular Hgb Concent. 32.4 g/dl (32-36); Monocyte (Absolute #) 0.46 (0.0-1.3); Platelet Count 309 K/mm3 (150-450); Red Blood Count 4.46 M/mm3 (4.1-5.4); Red Cell Distribution Width 13.3 % (11.5-14.0); White Blood Count 5.1 K/mm3 (4.0-10.5)
[2018-06-22 10:43] LABS: ALBUMIN 4.3 g/dL (3.5-5.0); ALKALINE PHOSPHATASE 84 U/L (38-126); ANION GAP 10.9 MEQ/L (5-15); BLOOD UREA NITROGEN 10 mg/dL (7-17); CHLORIDE 102 mmol/L (98-107); Calcium 10.6 mg/dL (8.4-10.2); Carbon Dioxide 31 mmol/L (22-30); Creatinine 1 0.84 mg/dL (0.52-1.04); Glucose 86 mg/dL (74-106); NT PRO BNP 30.5 pg/mL (0-900); Potassium 4.3 mmol/L (3.5-5.1); SGOT/AST 23 U/L (14-36); SGPT/ALT 20 U/L (0-35); SODIUM 140 mmol/L (137-145); Total Protein 7.8 g/dL (6.3-8.2)
--- NOTE | 2018-06-22 10:49 | XRAY ---
Indication: Chest pain. Comparison: May 18, 2016. Portable chest again demonstrates normal heart and lungs. Bony thorax intact. No new/acute findings.
[2018-06-22 11:10] VITALS: BP 123/83; PULSE 81; O2SAT 98
== END 2018-06-22 11:20 | disposition home or self-care (01) ==
LOC: ED 09:49
DX: R07.9 Chest pain, unspecified (principal); M54.9 Dorsalgia, unspecified; R07.81 Pleurodynia; M79.602 Pain in left arm; M79.601 Pain in right arm
CPT/HCPCS: 36000; 36415; 71045; 80053; 83880; 84484; 85025; 85379; 93005; 93041; 99284; A9270-GY

== ENCOUNTER 2020-02-16 11:37 | Emergency (ER) | payer BC ==
--- NOTE | 2020-02-16 12:18 | ERPHSYRPT ---
- History of Present Illness Time Seen by Provider: 02/16/20 12:15 Source: patient Exam Limitations: no limitations Patient Subjective Stated Complaint: Pt states "I have had all tests done and I need tested for a blood clot. My leg hurts so bad." Triage Nursing Assessment: Pt presetend alert and oriented X 3, skin pd. pt ambulates with a limp. Pt left leg tender, cold to touch. Physician History: Pt states "I have had all tests done and I need tested for a blood clot. My leg hurts so bad." Occurred: other (for few weeks. ) Quality: constant, cramping Severity of Pain-Max: moderate Severity of Pain-Current: moderate Lower Extremities Pain: leg: left, thigh: left Modifying Factors: Improves With: nothing Associated Symptoms: none Allergies/Adverse Reactions: latex Allergy (Mild, Verified 06/22/18 10:25) Rash Home Medications: Loratadine 10 mg [Claritin 10 mg] 10 mg PO DAILY 06/22/18 [History] Metoprolol Succinate [Toprol Xl] 12 mg PO DAILY 02/16/20 [History] Hx Tetanus, Diphtheria Vaccination/Date Given: No Hx Influenza Vaccination/Date Given: Yes Hx Pneumococcal Vaccination/Date Given: No Immunizations Up to Date: Yes Travel Risk - International Travel Have you traveled outside of the country in past 3 weeks: No - Coronavirus Screening Are you exhibiting any of the following symptoms?: No Close contact with a COVID-19 positive Pt in past 14-21 Days: No - Review of Systems Constitutional: No Fever, No Chills Eyes: No Symptoms Ears, Nose, & Throat: No Symptoms Respiratory: No Cough, No Dyspnea Cardiac: No Chest Pain, No Edema, No Syncope Abdominal/Gastrointestinal: No Abdominal Pain, No Nausea, No Vomiting, No Diarrhea Genitourinary Symptoms: No Dysuria Musculoskeletal: No Back Pain, No Neck Pain, No Fall Skin: No Rash Neurological: No Dizziness, No Focal Weakness, No Sensory Changes Psychological: No Symptoms Endocrine: No Symptoms All Other Systems: Reviewed and Negative - Past Medical History Pertinent Past Medical History: Yes Neurological History: No Pertinent History ENT History: No Pertinent History Cardiac History: No Pertinent History Respiratory History: No Pertinent History Endocrine Medical History: No Pertinent History Musculoskeletal History: No Pertinent History GI Medical History: No Pertinent History History: No Pertinent History Psycho-Social History: No Pertinent History Female Reproductive Disorders: Uterine Cancer - Past Surgical History Past Surgical History: Yes Neuro Surgical History: No Pertinent History Cardiac: No Pertinent History Respiratory: No Pertinent History Gastrointestinal: Cholecystectomy Genitourinary: No Pertinent History Female Surgical History: Hysterectomy, Section - Social History Smoking Status: Current every day smoker How long have you smoked: years Exposure to second hand smoke: Yes Drug Use: none Patient Lives Alone: Yes - Female History Hx Last Menstrual Period: hysterectomy Hx Now: No - Nursing Vital Signs Nursing Vital Signs: Initial Vital Signs Temperature 98.0 F 02/16/20 11:46 Pulse Rate 87 02/16/20 11:46 Respiratory Rate 22 02/16/20 11:46 Blood Pressure 138/88 02/16/20 11:46 O2 Sat by Pulse Oximetry 99 02/16/20 11:46 Pain Scale Pain Intensity 6 - Physical Exam General Appearance: alert Eyes, Ears, Nose, Throat Exam: moist mucous membranes Neck Exam: non-tender, supple Cardiovascular/Respiratory Exam: chest non-tender, normal breath sounds, regular rate/rhythm, no respiratory distress Gastrointestinal/Abdominal Exam: non-tender, guarding Back Exam: normal inspection, No vertebral tenderness Legs Exam: left leg: non-tender (positive yamilet sign) Neuro/Tendon Exam: normal sensation, normal motor functions Mental Status Exam: alert, oriented x 3, cooperative Skin Exam: normal color, warm, dry SpO2: 99 Procedures - Ultrasound Ultrasound: Other (LLE venous duplex) - Course Nursing assessment & vital signs reviewed: Yes - Radiology Ultrasound Exam Venous Lower Extremity Ultrasound: tele radiology report (no DVT) Ordered Tests: Active Orders 24 hr Category Date Time Status VENOUS UNILAT/LIMITED EXTREMIT [US] Stat Exams 02/16/20 Ordered - Progress Progress: unchanged Counseled pt/family regarding: diagnosis, need for follow-up, rad results, smoking cessation - Departure Departure Disposition: Home Clinical Impression: Pain in left leg, Venous insufficiency of left lower extremity, Peripheral vascular disease Condition: Stable Critical Care Time: No Referrals: CHATA TORRES MD [Primary Care Provider] - Follow Up with PCP (7 days) Instructions: Varicose Veins and Other Vein Disease in the Legs, Peripheral Vascular (Arterial) Disease (DC) Additional Instructions: Discharge/Care Plan DONNANOHEMY ANDUJAR was seen on 02/16/20 in the Emergency Room. The patient was counseled regarding Diagnosis,Lab results, Imaging studies, need for follow up and when to return to the Emergency Room. Prescriptions given: Discharge Note I have spoken with the patient and/or caregivers. I have explained the patient's condition, diagnosis and treatment plan based on the information available to me at this time. I have answered the patient's and/or caregiver's questions and addressed any concerns. The patient and/or caregivers have as good understanding of the patient's diagnosis, condition and treatment plan as can be expected at this point. The vital signs have been stable. The patient's condition is stable and appropriate for discharge from the emergency department. The patient will pursue further outpatient evaluation with the primary care physician or other designated or consulting physician as outlined in the discharge instructions. The patient and/or caregivers are agreeable to this plan of care and follow-up instructions have been explained in detail. The patient and/or caregivers have received these instruction. The patient/and or caregivers are aware that any significant change in condition or worsening of symptoms should prompt an immediate return to this or the closest emergency department or call 911. NOHEMY THOMPSON CON was seen on 02/16/20 n the Emergency Room. At that time you were treated for an emergent condition, during your visit Laboratory, Radiology and/or other procedures may have been ordered. It is very important that you follow-up with your Primary Care Physician CHATA TORRES within the next 24-48 hours to review your Emergency Room visit and the final results of testing that was ordered. Some test results such as Urine Cultures, Blood Cultures, and other cultures if ordered will not be finalized for 24-48 hours. If you do not have a Primary Care Provider please call the medical records department at [phone] to obtain a copy of your results or you may sign into our patient portal to obtain these results by visiting us @ [email or web address] and completing the following steps: 1. Click on the Patient Portal link 2. Click the Patient Self Enrollment Link to complete the enrollment form and entering your 3. Once the enrollment form is completed you will receive an email with a temporary ID and password at the email address you provided. 4. Next choose a user name and password. Your user name must be at least 4 characters long and your password must be at least 4 characters long. 5. Choose a security question from the list and provide your answer to the question. If you already have signed into the Health Portal you may access your Health Care Information 06/09 by the following steps: 1. Login to our website @ [email or web address] 2. Enter your original user name and password. FAQS [facility] Health Portal is an online tool that contains your Lab Results, Radiology Reports, Visit History, Discharge Instructions and Health Summary Lab and Radiology Results will not be available for 72 hours on the portal. The Portal is a secure site, passwords are encryted and URLs are re-written so they cannot be copied and pasted. You and authorized family members are the only ones who can access your Portal. Also there is a timeout feature that protects your information if you leave the Portal page open. If you have technical difficulty please use the Contact Us link on the page this will allow you to submit any questions you have regarding the Portal or you may contact the Medical Record Department at [phone]. Prescriptions: Cilostazol 100 mg [Pletal 100 MG] 100 mg PO DAILY 30 Days #30 tablet
[2020-02-16 12:41] VITALS: BP 107/77
[2020-02-16 13:15] VITALS: PULSE 75; O2SAT 97
--- NOTE | 2020-02-16 17:00 | XRAY ---
Indication: Pain. 2-dimensional sonogram and color Doppler imaging of the major venous vessels of the left leg was performed. Comparison: None No thrombus seen in the examined deep venous vessels of the left leg including greater saphenous vein. Veins demonstrate normal compressibility. Venous waveforms are normal with and without augmentation. Impression: Left leg negative for DVT. Comment: Preliminary report was given.
== END 2020-02-16 13:30 | disposition home or self-care (01) ==
LOC: ED 11:37
DX: M79.605 Pain in left leg (principal); I87.2 Venous insufficiency (chronic) (peripheral); I73.9 Peripheral vascular disease, unspecified; Z79.899 Other long term (current) drug therapy
CPT/HCPCS: 93971; 99283